=== PATIENT | female | born 1990 | race Two or more races ===

== ENCOUNTER 2018-10-21 20:24 | Emergency (ER) | payer MEDICAID ==
[~2018-10-21] VITALS: Ht 162.6 cm; Wt 104.3 kg
[2018-10-21 20:35] VITALS: BP 168/93
[2018-10-21] MEDS ORDERED: predniSONE 50 MG TABLET PO ONE (21:00)
[2018-10-21] MEDS ORDERED: DIPHENHYDRAMINE HCL 12.5 MG/5 ML UDC PO ONE (21:00)
[2018-10-21] MEDS ORDERED: FAMOTIDINE (20 MG) 20 MG TABLET PO ONE (21:00)
[2018-10-21] MEDS ORDERED: diphenhydrAMINE HCL ELIX 25 MG/10 ML UDC ONE (21:05)
[2018-10-21] MEDS ORDERED: predniSONE 20 MG TABLET ONE (21:06)
[2018-10-21] MEDS ORDERED: predniSONE 10 MG TABLET ONE (21:06)
[2018-10-21] MEDS ORDERED: FAMOTIDINE (20 MG) 20 MG TABLET ONE (21:06)
== END 2018-10-21 22:01 | disposition home or self-care (01) ==
LOC: ER 20:24
DX: K21.9 Gastro-esophageal reflux disease without esophagitis (principal); Z90.89 Acquired absence of other organs; Z88.6 Allergy status to analgesic agent
CPT/HCPCS: 99284; J7512 ×2; Q0163 ×2